=== PATIENT | female | born 1965 ===

== ENCOUNTER 2020-08-20 10:30 | Inpatient (IN) | payer OTHER ==
[~2020-08-20] VITALS: Ht 162.6 cm; Wt 87.5 kg
[2020-08-20] MEDS ORDERED: TENORMIN25 MG PO (13:47)
[2020-08-20] MEDS ORDERED: ZESTORETIC 10-1 EACH PO (13:47)
[2020-08-20] MEDS ORDERED: LIPITOR20 MG PO (13:47)
[2020-08-25] MEDS ORDERED: CLONAZEPAM0.5 MG (11:07)
[2020-08-25] MEDS ORDERED: TRAZODONE HCL50 MG (11:07)
[2020-08-25] MEDS ORDERED: SERTRALINE HCL50 MG (11:07)
[2020-08-25] MEDS ORDERED: RESTORIL15 MG (11:07)
[2020-08-25] MEDS ORDERED: LATANOPROST2.5 ML (11:07)
[2020-08-25] MEDS ORDERED: AMOX-CLAV 875-1 EAC1 PO (12:28)
[2020-08-25] MEDS ORDERED: NEURONTIN800 MG PO (12:28)
[2020-08-25] MEDS ORDERED: PERCOCET 5-3251 EACH PO (12:28)
[2020-08-25] MEDS ORDERED: DIAZEPAM5 MG PO (12:28)
[2020-08-25] MEDS ORDERED: COLACE100 MG PO (12:28)
[2020-08-25] MEDS ORDERED: MEDROLPACK PO (12:28)
[2020-08-26] MEDS ORDERED: ZOFRAN8 MG PO (07:47)
== END 2020-08-26 13:19 | disposition home or self-care (01) | DRG 460 ==
LOC: O/R 08-25 06:37 → SURG 08-25 10:30 → PED 08-25 17:05 → SURG 08-25 23:30 → PED 08-26 13:19
PROVIDERS: ADMIT Orthopaedic Surgery Orthopaedic Surgery of the Spine; ATTEND Orthopaedic Surgery Orthopaedic Surgery of the Spine
PROC: 07DR0ZZ Extraction of Iliac Bone Marrow, Open Approach (ICD-10-PCS; 2020-08-25)
PROC: 0SG10A0 Fusion of 2 or more Lumbar Vertebral Joints with Interbody Fusion Device, Anterior Approach, Anterior Column, Open Approach (ICD-10-PCS; principal; 2020-08-25 23:30)
DX: M48.062 Spinal stenosis, lumbar region with neurogenic claudication (principal); M51.36 Other intervertebral disc degeneration, lumbar region

== ENCOUNTER 2023-11-02 07:05 | Outpatient (CLI) | payer OTHER ==
[~2023-11-02 07:05] MED LIST: AMOX-CLAV 875-1 EAC1 PO; CLONAZEPAM0.5 MG; COLACE100 MG PO; DIAZEPAM5 MG PO; LATANOPROST2.5 ML; LIPITOR20 MG PO; MEDROLPACK PO; NEURONTIN800 MG PO; PERCOCET 5-3251 EACH PO; RESTORIL15 MG; SERTRALINE HCL50 MG; TENORMIN25 MG PO; TRAZODONE HCL50 MG; ZESTORETIC 10-1 EACH PO; ZOFRAN8 MG PO
== END 2023-11-02 07:06 | disposition home or self-care (01) ==
LOC: NUCLEAR 07:05
PROVIDERS: ATTEND Internal Medicine Cardiovascular Disease
DX: M81.0 Age-related osteoporosis without current pathological fracture (principal); E55.9 Vitamin D deficiency, unspecified
CPT/HCPCS: 78315; A9503